=== PATIENT | female | born 1995 | race Two or more races ===

== ENCOUNTER 2023-06-03 15:41 | Emergency (ER) | payer MEDICAID ==
[~2023-06-03] VITALS: Ht 154.9 cm; Wt 78.0 kg
[2023-06-03] MEDS ORDERED: AMOX-430 PO (16:36)
[2023-06-03 17:02] VITALS: BP 114/75; TEMP 99.2; O2SAT 98
== END 2023-06-03 17:05 | disposition home or self-care (01) ==
LOC: ER 15:48
DX: L03.211 Cellulitis of face (principal); K04.7 Periapical abscess without sinus